=== PATIENT | female | born 1960 | race Caucasian/White ===

== ENCOUNTER 2022-10-12 07:57 | Day surgery (SDC) | payer MEDICAID ==
[~2022-10-12] VITALS: Ht 162.6 cm; Wt 69.9 kg
[2022-10-12] MEDS ORDERED: MEPERIDINE 50 MG/ML VIAL ONE (10:35)
[2022-10-12] MEDS ORDERED: MIDAZOLAM HCL 5 MG/5 ML VIAL ONE (10:36)
[2022-10-12 12:52] VITALS: BP_SYST 142
== END 2022-10-12 12:07 | disposition home or self-care (01) ==
LOC: SDS 07:57 → SMU 08:16 → SDS 12:07
PROVIDERS: ATTEND Internal Medicine Gastroenterology
DX: R19.4 Change in bowel habit (principal); K63.5 Polyp of colon; K64.8 Other hemorrhoids; Z86.010 Personal history of colon polyps; I10 Essential (primary) hypertension; K21.9 Gastro-esophageal reflux disease without esophagitis; E11.9 Type 2 diabetes mellitus without complications; E78.5 Hyperlipidemia, unspecified; Z90.710 Acquired absence of both cervix and uterus; Z85.3 Personal history of malignant neoplasm of breast; Z79.899 Other long term (current) drug therapy; Z20.822 Contact with and (suspected) exposure to COVID-19; Z87.891 Personal history of nicotine dependence
CPT/HCPCS: 45380; 87426; 36415; 88305; 99152; 99153; G0378; J2250; J2175